=== PATIENT | male | born 1975 | race American Indian/Alaskan Native ===

== ENCOUNTER 2022-05-01 10:53 | Emergency (ER) | payer SELFPAY ==
--- NOTE | 2022-05-01 12:33 | Event Note ---
ED Screening Note ED Screening Note: CO B LOWER ABD PAIN AND DYSURIA NO FEVER VSS UA NOTED This initial assessment/diagnostic orders/clinical plan/treatment(s) is/are subject to change based on patients health status, clinical progression and re- assessment by fellow clinical providers in the ED. Further treatment and workup at subsequent clinical providers discretion. Patient/guardian urged not to elope from the ED as their condition may be serious if not clinically assessed and managed. Initial orders include: LABS PENDING
[2022-05-01 13:35] LABS: Bilirubin,Urine NEG (Negative); Blood,Urine NEG (Negative); Color,Urine Yellow (Yellow); Protein,Urine <15 mg/dL mg/dL (Negative); Urobilinogen,Urine < 2 mg/dL (<2.0)
[2022-05-01 13:36] LABS: Mucus,Urine 1+ /HPF; WBC,Urine < 1.0 /HPF (0.0-6.0)
[2022-05-01 15:05] LABS: Hematocrit 40.2 % (35.5-45.6); Hemoglobin 13.2 gm/dl (11.8-15.2); Mean Corpuscular HGB Conc 33 % (32-34); Mean Corpuscular Volume 71 fl (84-94); Platelet Count 164 K/mm3 (140-440); Red Blood Count 5.65 M/mm3 (3.65-5.03); Red Cell Distribution Width 14.5 % (13.2-15.2)
[2022-05-01 15:18] LABS: Alanine Aminotransferase 13 units/L (7-56); Albumin 4.8 g/dL (3.9-5); BUN/Creatinine Ratio 9; Blood Urea Nitrogen 13 mg/dL (9-20); Calcium 9.7 mg/dL (8.4-10.2); Hemolysis Index 18
--- NOTE | 2022-05-01 15:25 | Emergency Department Report ---
ED Male HPI - General Chief complaint: Urogenital-Male Stated complaint: DISCOMFORT Time Seen by Provider: 05/01/22 12:33 Source: patient Mode of arrival: Ambulatory Limitations: No Limitations - History of Present Illness Initial comments: 46-year-old male presenting with abdominal pain and dysuria. Patient reports symptoms has been going on for about 2 days. Reports dysuria mild burning with urination,, without hematuria without nausea vomiting diarrhea., No discharge No fever, no chills, no back pain. Sexually active male without use of condoms. Improves with: none - Related Data Previous Rx's Medication Instructions Recorded Last Taken Type Doxycycline Hyclate [Doxycycline 100 mg PO Q12HR 7 Days #14 tab 05/01/22 Unknown Rx Hyclate TAB] Phenazopyridine [Pyridium] 200 mg PO BID 3 Days #6 tab 05/01/22 Unknown Rx Allergies Allergy/AdvReac Type Severity Reaction Status Date / Time No Known Allergies Allergy Verified 05/01/22 12:33 ED Review of Systems ROS: Stated complaint: DISCOMFORT Other details as noted in HPI Constitutional: denies: chills, fever Cardiovascular: denies: chest pain, palpitations Endocrine: denies: see HPI Gastrointestinal: denies: abdominal pain, nausea, vomiting Genitourinary: urgency, dysuria Skin: denies: rash, lesions, change in color Neurological: denies: headache, weakness ED Past Medical Hx - Past Medical History Previous Medical History?: No - Medications Home Medications: Home Medications Medication Instructions Recorded Confirmed Last Taken Type Doxycycline Hyclate [Doxycycline 100 mg PO Q12HR 7 Days #14 tab 05/01/22 Unknown Rx Hyclate TAB] Phenazopyridine [Pyridium] 200 mg PO BID 3 Days #6 tab 05/01/22 Unknown Rx ED Physical Exam - General Limitations: No Limitations General appearance: alert, in no apparent distress - Head Head exam: Present: atraumatic - Eye Eye exam: Present: normal appearance Pupils: Present: normal accommodation - ENT ENT exam: Present: normal exam, normal orophraynx - Neck Neck exam: Present: normal inspection - Respiratory Respiratory exam: Present: normal lung sounds bilaterally, respiratory distress - Cardiovascular Cardiovascular Exam: Present: regular rate, normal rhythm - GI/Abdominal GI/Abdominal exam: Present: soft. Absent: distended - Extremities Exam Extremities exam: Present: normal inspection, full ROM - Back Exam Back exam: Present: normal inspection, full ROM - Neurological Exam Neurological exam: Present: alert, oriented X3, CN II-XII intact, normal gait. Absent: motor sensory deficit - Psychiatric Psychiatric exam: Present: normal affect, normal mood - Skin Skin exam: Present: warm, dry, intact, normal color. Absent: cyanosis ED Medical Decision Making - Lab Data Result diagrams: 05/01/22 14:22 05/01/22 14:22 - Medical Decision Making No leukocytosis, no WBCs, leukocytes nitrates bacteria in his urinalysis, patient has normotensive ambulating steadily no guarding on examination, treated prophylactically for gonorrhea chlamydia, doxycycline for urethritis x7 days with referral to urology. Creatinine is 1.3, no prior lab results for confirmation, IV hydration and follow-up. I Patient remained stable nontoxic-appearing, afebrile, ambulating steadily without assistance. Gone over ED findings with patient as well as plan for follow-up. Also discussed return precautions with patient, all questions and concerns addressed. Patient is stable to be discharged follow-up outpatient. Audio voice dictation device used, hence the chart might contain some dictation errors, mispronunciations, wrong spelling and wrong verbiage. Critical care attestation.: If time is entered above; I have spent that time in minutes in the direct care of this critically ill patient, excluding procedure time. ED Disposition Clinical Impression: Dysuria, Urethritis Disposition: 01 HOME / SELF CARE / HOMELESS Is pt being admited?: No Does the pt Need Aspirin: No Condition: Stable Instructions: Dysuria Additional Instructions: Your creatinine was slightly elevated today. Make sure you are drinking plenty of fluids. Also make sure you are following up as I have discussed, no sexual activity until cleared, finish all of the antibiotics, return worsening pain, fever nausea vomiting or any other concerning symptoms Prescriptions: Doxycycline Hyclate [Doxycycline Hyclate TAB] 100 mg PO Q12HR 7 Days #14 tab Referrals: PRIMARY CAREMD [Primary Care Provider] - 3-5 Days MICHAEL HAYES MD [Staff Physician] - 3-5 Days Forms: Work/School Release Form(ED), STI Treatment and Prevention
[2022-05-01] MEDS ORDERED: AZITHROMYCIN 250 MG TAB PO ONE (15:38)
[2022-05-01] MEDS ORDERED: LIDOCAINE-MPF (1%) 10 MG/1 ML VIAL 5 ML INFILTRATI ONE (15:38)
== END 2022-05-01 16:35 | disposition home or self-care (01) ==
LOC: ED 10:53
DX: N34.2 Other urethritis (principal); Z79.899 Other long term (current) drug therapy
CPT/HCPCS: 36415; 80053; 81001; 85027; 96372; 99283; J0696; J3490